=== PATIENT | male | born 1950 | race African-American/Black ===

== ENCOUNTER 2020-05-06 11:27 | Inpatient (IN) | payer OTHER ==
[2020-05-06 12:21] VITALS: BMI 18.8
[2020-05-06] MEDS ORDERED: ACETAMINOPHEN 325 MG TABLET (FP) PO PRN ×2 (13:14)
[2020-05-06] MEDS ORDERED: IBUPROFEN 400 MG TABLET (FP) PO PRN (13:14)
[2020-05-06] MEDS ORDERED: MAG HYDROX/AL HYDROX/SIMETH 30 ML UNIT-DOSE CUP PO PRN (13:14)
[2020-05-06] MEDS ORDERED: MENTHOL/PHENOL 1 EACH UD MM PRN (13:14)
[2020-05-06] MEDS ORDERED: MAGNESIUM CITRATE 300 ML BOTTLE PO PRN (13:14)
[2020-05-06] MEDS ORDERED: chlordiazePOXIDE HCL 25 MG CAPSULE PO PRN (13:14)
[2020-05-06] MEDS ORDERED: NICOTINE POLACRILEX 2 MG GUM BUC PRN (13:14)
[2020-05-06] MEDS ORDERED: ONDANSETRON *ODT* 4 MG TABLET SL PRN (13:14)
[2020-05-06] MEDS ORDERED: MAGNESIUM HYDROX 2400MG/30ML ORAL SUSPENSION 30 ML CUP PO PRN (13:14)
[2020-05-06] MEDS ORDERED: BISMUTH SUBSALICYLATE 524 MG/30 ML UD PO PRN (13:14)
[2020-05-06] MEDS ORDERED: TENOFOVIR DISOPROXIL FUMARATE 300 MG TABLET PO SCH (13:15)
[2020-05-06] MEDS: ASPIRIN 81 MG CHEWABLE TABLETS PO SCH (14:00)
[2020-05-06] MEDS ORDERED: hydrOXYzine PAMOATE 25 MG CAPSULE (FP) PO SCH (14:00)
[2020-05-06] MEDS: HYDROCHLOROTHIAZIDE 25 MG TABLET (FP) PO SCH (14:10)
[2020-05-06] MEDS: NICOTINE 14 MG/24 HOURS TOPICAL PATCH TD SCH (14:11)
[2020-05-06] MEDS: amLODIPine BESYLATE 5 MG TABLET (FP) PO SCH (14:12)
[2020-05-06] MEDS ORDERED: QUEtiapine FUMARATE 50 MG TABLET PO PRN (14:55)
[2020-05-06] MEDS: VALSARTAN 160 MG TABLET PO SCH (15:04)
[2020-05-06] MEDS: DARUNAVIR 800 MG/COBICISTAT 150MG TABLET PO SCH (15:05)
[2020-05-06] MEDS: DOLUTEGRAVIR SODIUM 50 MG TABLET (NON-FORMULARY) PO SCH (15:05)
[2020-05-06] MEDS ORDERED: hydrOXYzine PAMOATE 25 MG CAPSULE (FP) PO PRN (15:51)
[2020-05-06] MEDS ORDERED: chlordiazePOXIDE HCL 25 MG CAPSULE PO SCH (17:00)
[2020-05-06] MEDS: chlordiazePOXIDE HCL 25 MG CAPSULE PO SCH ×2 (17:44→22:13)
[2020-05-06 18:37] LABS: HEMATOCRIT 37.2 % (35.4-49); HEMOGLOBIN 12.3 GM/dL (11.7-16.9); MCH 28.8 pg (25.7-33.7); MEAN CELL VOLUME 87.5 fl (80-96); MEAN PLT VOLUME 9.9 fl (7.5-11.1); PLATELET COUNT 179 K/MM3 (134-434); RBC 4.25 M/mm3 (4.00-5.60); RDW 14.7 % (11.9-15.9); WHITE BLOOD COUNT 3.2 K/mm3 (4.0-10.0)
[2020-05-06 18:40] LABS: POTASSIUM 4.6 mmol/L (3.5-5.1)
[2020-05-06 18:41] LABS: CALCIUM 9.3 mg/dL (8.5-10.1)
[2020-05-06 18:42] LABS: ALBUMIN 3.9 g/dl (3.4-5.0); BLOOD UREA NITROGEN 37.2 mg/dL (7-18)
[2020-05-06 18:45] LABS: CREATININE 2.9 mg/dL (0.55-1.3)
[2020-05-06 18:47] LABS: BILIRUBIN,TOTAL 0.4 mg/dL (0.2-1); TOT PROT 8.5 g/dl (6.4-8.2)
[2020-05-06] MEDS ORDERED: SULFAMETHOXAZOLE/TRIMETHOPRIM 800MG/160MG D.S. TABLET PO SCH (22:00)
[2020-05-06] MEDS: THIAMINE HCL 100 MG TABLET (FP) PO SCH (22:13)
[2020-05-06] MEDS: MELATONIN 5 MG TABLETS PO SCH (22:13)
[2020-05-07] MEDS: chlordiazePOXIDE HCL 25 MG CAPSULE PO SCH ×4 (06:57→22:28)
[2020-05-07] MEDS: ASPIRIN 81 MG CHEWABLE TABLETS PO SCH (10:44)
[2020-05-07] MEDS: DOLUTEGRAVIR SODIUM 50 MG TABLET (NON-FORMULARY) PO SCH (10:44)
[2020-05-07] MEDS: PRENATAL VITAMINS W/ FOLIC ACID TABLET (FP) PO SCH (10:45)
[2020-05-07] MEDS: DARUNAVIR 800 MG/COBICISTAT 150MG TABLET PO SCH (10:45)
[2020-05-07] MEDS: NICOTINE 14 MG/24 HOURS TOPICAL PATCH TD SCH (10:46)
[2020-05-07] MEDS: VALSARTAN 160 MG TABLET PO SCH (13:03)
[2020-05-07] MEDS: amLODIPine BESYLATE 5 MG TABLET (FP) PO SCH (13:04)
[2020-05-07] MEDS: HYDROCHLOROTHIAZIDE 25 MG TABLET (FP) PO SCH (13:04)
[2020-05-07] MEDS: THIAMINE HCL 100 MG TABLET (FP) PO SCH (22:28)
[2020-05-07] MEDS: MELATONIN 5 MG TABLETS PO SCH (22:29)
[2020-05-08] MEDS: chlordiazePOXIDE HCL 25 MG CAPSULE PO SCH ×4 (05:40→22:50)
[2020-05-08] MEDS: amLODIPine BESYLATE 5 MG TABLET (FP) PO SCH (10:37)
[2020-05-08] MEDS: NICOTINE 14 MG/24 HOURS TOPICAL PATCH TD SCH (10:37)
[2020-05-08] MEDS: PRENATAL VITAMINS W/ FOLIC ACID TABLET (FP) PO SCH (10:37)
[2020-05-08] MEDS: ASPIRIN 81 MG CHEWABLE TABLETS PO SCH (10:37)
[2020-05-08] MEDS: DOLUTEGRAVIR SODIUM 50 MG TABLET (NON-FORMULARY) PO SCH (10:38)
[2020-05-08] MEDS: DARUNAVIR 800 MG/COBICISTAT 150MG TABLET PO SCH (10:38)
[2020-05-08] MEDS: METHOCARBAMOL 500 MG TABLET PO PRN (15:09)
[2020-05-08] MEDS: THIAMINE HCL 100 MG TABLET (FP) PO SCH (21:19)
[2020-05-08] MEDS: SULFAMETHOXAZOLE/TRIMETHOPRIM 400MG/80MG S.S. TABLET PO SCH (21:20)
[2020-05-08] MEDS: MELATONIN 5 MG TABLETS PO SCH (23:41)
[2020-05-09] MEDS ORDERED: chlordiazePOXIDE HCL 10 MG CAPSULE PO PRN
[2020-05-09] MEDS: chlordiazePOXIDE HCL 10 MG CAPSULE PO SCH ×4 (06:11→22:27)
[2020-05-09] MEDS: PRENATAL VITAMINS W/ FOLIC ACID TABLET (FP) PO SCH (10:36)
[2020-05-09] MEDS: NICOTINE 14 MG/24 HOURS TOPICAL PATCH TD SCH (10:37)
[2020-05-09] MEDS: HYDROCHLOROTHIAZIDE 25 MG TABLET (FP) PO SCH (10:37)
[2020-05-09] MEDS: ASPIRIN 81 MG CHEWABLE TABLETS PO SCH (10:37)
[2020-05-09] MEDS: amLODIPine BESYLATE 5 MG TABLET (FP) PO SCH (10:37)
[2020-05-09] MEDS: DARUNAVIR 800 MG/COBICISTAT 150MG TABLET PO SCH (10:38)
[2020-05-09] MEDS: DOLUTEGRAVIR SODIUM 50 MG TABLET (NON-FORMULARY) PO SCH (10:38)
[2020-05-09] MEDS: VALSARTAN 160 MG TABLET PO SCH (10:38)
[2020-05-09 11:11] LABS: BASO % 1.8 % (0-2.0); EOS % 7.8 % (0-4.5); HEMATOCRIT 32.2 % (35.4-49); HEMOGLOBIN 10.7 GM/dL (11.7-16.9); LYMPH % 33.4 % (8-40); MCH 29.1 pg (25.7-33.7); MCHC 33.2 g/dl (32.0-35.9); MEAN CELL VOLUME 87.7 fl (80-96); MEAN PLT VOLUME 9.2 fl (7.5-11.1); MONO % 15.1 % (3.8-10.2); NEUT % 41.9 % (42.8-82.8); PLATELET COUNT 146 K/MM3 (134-434); RBC 3.67 M/mm3 (4.00-5.60); RDW 14.5 % (11.9-15.9); WHITE BLOOD COUNT 2.4 K/mm3 (4.0-10.0)
[2020-05-09 11:19] LABS: POTASSIUM 4.7 mmol/L (3.5-5.1)
[2020-05-09 11:28] LABS: ALBUMIN 3.3 g/dl (3.4-5.0); CALCIUM 9.3 mg/dL (8.5-10.1)
[2020-05-09 11:29] LABS: BLOOD UREA NITROGEN 32.3 mg/dL (7-18)
[2020-05-09 11:32] LABS: CREATININE 2.5 mg/dL (0.55-1.3)
[2020-05-09 11:33] LABS: BILIRUBIN,TOTAL 0.8 mg/dL (0.2-1); TOT PROT 7.1 g/dl (6.4-8.2)
[2020-05-09] MEDS: MELATONIN 5 MG TABLETS PO SCH (22:24)
[2020-05-09] MEDS: THIAMINE HCL 100 MG TABLET (FP) PO SCH (22:24)
[2020-05-09] MEDS: SULFAMETHOXAZOLE/TRIMETHOPRIM 400MG/80MG S.S. TABLET PO SCH (22:25)
[2020-05-10] MEDS: chlordiazePOXIDE HCL 10 MG CAPSULE PO SCH ×2 (06:29→18:30)
[2020-05-10] MEDS: amLODIPine BESYLATE 5 MG TABLET (FP) PO SCH (10:19)
[2020-05-10] MEDS: ASPIRIN 81 MG CHEWABLE TABLETS PO SCH (10:19)
[2020-05-10] MEDS: NICOTINE 14 MG/24 HOURS TOPICAL PATCH TD SCH (10:19)
[2020-05-10] MEDS: PRENATAL VITAMINS W/ FOLIC ACID TABLET (FP) PO SCH (10:19)
[2020-05-10] MEDS: HYDROCHLOROTHIAZIDE 25 MG TABLET (FP) PO SCH (10:19)
[2020-05-10] MEDS: VALSARTAN 160 MG TABLET PO SCH (10:19)
[2020-05-10] MEDS: DOLUTEGRAVIR SODIUM 50 MG TABLET (NON-FORMULARY) PO SCH (10:20)
[2020-05-10] MEDS: DARUNAVIR 800 MG/COBICISTAT 150MG TABLET PO SCH (10:20)
[2020-05-10 14:53] LABS: BASO % 0.5 % (0-2.0); EOS % 5.3 % (0-4.5); HEMATOCRIT 36.2 % (35.4-49); HEMOGLOBIN 11.9 GM/dL (11.7-16.9); LYMPH % 25.8 % (8-40); MCH 29.1 pg (25.7-33.7); MCHC 32.7 g/dl (32.0-35.9); MEAN PLT VOLUME 10.1 fl (7.5-11.1); MONO % 13.5 % (3.8-10.2); NEUT % 54.9 % (42.8-82.8); PLATELET COUNT 182 K/MM3 (134-434); RBC 4.07 M/mm3 (4.00-5.60); RDW 14.9 % (11.9-15.9); WHITE BLOOD COUNT 3.5 K/mm3 (4.0-10.0)
[2020-05-10] MEDS: METHOCARBAMOL 500 MG TABLET PO PRN (20:47)
[2020-05-10 20:57] VITALS: BP 119/77; PULSE 84; TEMP 96.1
[2020-05-10] MEDS: SULFAMETHOXAZOLE/TRIMETHOPRIM 400MG/80MG S.S. TABLET PO SCH (23:15)
[2020-05-10] MEDS: MELATONIN 5 MG TABLETS PO SCH (23:15)
[2020-05-10] MEDS: THIAMINE HCL 100 MG TABLET (FP) PO SCH (23:18)
[2020-05-11] MEDS ORDERED: FOLIC ACID INJECTION - 1 MG, THIAMINE HCL 100 MG, MULTIVIT INJECTION ADULT 10 ML in SOD... IVPB ONE (01:09)
[2020-05-11] MEDS ORDERED: chlordiazePOXIDE HCL 10 MG CAPSULE PO ONE (05:00)
[2020-05-11] MEDS ORDERED: QUEtiapine FUMARATE 50 MG TABLET PO SCH (22:00)
== END 2020-05-10 21:39 | disposition short-term general hospital (02) | DRG 897 ==
LOC: YASAS 11:27 → Y6N 12:13
PROVIDERS: ADMIT Allergy & Immunology; ATTEND Allergy & Immunology
PROC: HZ2ZZZZ Detoxification Services for Substance Abuse Treatment (ICD-10-PCS; principal; 2020-05-06)
DX: F10.230 Alcohol dependence with withdrawal, uncomplicated (principal); F19.282 Other psychoactive substance dependence with psychoactive substance-induced sleep disorder; B20 Human immunodeficiency virus [HIV] disease; N17.9 Acute kidney failure, unspecified; F11.23 Opioid dependence with withdrawal; F12.20 Cannabis dependence, uncomplicated; F17.210 Nicotine dependence, cigarettes, uncomplicated; F19.24 Other psychoactive substance dependence with psychoactive substance-induced mood disorder; I10 Essential (primary) hypertension; D64.9 Anemia, unspecified; R79.89 Other specified abnormal findings of blood chemistry; D72.819 Decreased white blood cell count, unspecified; M25.552 Pain in left hip; R26.2 Difficulty in walking, not elsewhere classified; Z99.89 Dependence on other enabling machines and devices; Z86.79 Personal history of other diseases of the circulatory system; Z86.19 Personal history of other infectious and parasitic diseases; W01.0XXA Fall on same level from slipping, tripping and stumbling without subsequent striking against object, initial encounter; Y93.89 Activity, other specified; Y92.230 Patient room in hospital as the place of occurrence of the external cause
CPT/HCPCS: 36415; 80053; 85025; 85027; 86780; 93005; 93010; C9803; U0003

== ENCOUNTER 2020-05-10 21:52 | Inpatient (IN) | payer OTHER ==
[2020-05-10 23:41] LABS: HEMATOCRIT 33.3 % (35.4-49); HEMOGLOBIN 11.1 GM/dL (11.7-16.9); MCHC 33.3 g/dl (32.0-35.9); MEAN CELL VOLUME 87.2 fl (80-96); MEAN PLT VOLUME 9.3 fl (7.5-11.1); PLATELET COUNT 176 K/MM3 (134-434); RBC 3.82 M/mm3 (4.00-5.60); RDW 14.9 % (11.9-15.9); WHITE BLOOD COUNT 3.1 K/mm3 (4.0-10.0)
[2020-05-10 23:50] LABS: INR 0.89 (0.83-1.09)
[2020-05-10 23:59] LABS: CHLORIDE 105 mmol/L (98-107); POTASSIUM 5.3 mmol/L (3.5-5.1); SODIUM 139 mmol/L (136-145)
[2020-05-11] LABS: CALCIUM 9.1 mg/dL (8.5-10.1)
[2020-05-11 00:02] LABS: ALBUMIN 3.4 g/dl (3.4-5.0); ANION GAP 3 MMOL/L (8-16); CO2 31 mmol/L (21-32); GLUCOSE,RANDOM 92 mg/dL (74-106)
[2020-05-11 00:05] LABS: BLOOD UREA NITROGEN 41.5 mg/dL (7-18); CREATININE 2.7 mg/dL (0.55-1.3); SGOT/AST 23 U/L (15-37); SGPT/ALT 22 U/L (13-61)
[2020-05-11 00:06] LABS: BILIRUBIN,TOTAL 0.2 mg/dL (0.2-1); TOT PROT 7.6 g/dl (6.4-8.2)
[2020-05-11 00:07] LABS: ALK PHOS 91 U/L (45-117)
[2020-05-11 00:40] LABS: COCAINE, UR NEGATIVE ng/ml (CUTOFF=300); METHADONE, UR NEGATIVE ng/ml (CUTOFF=300); URINE BARBITURATES NEGATIVE ng/ml (CUTOFF=200)
[2020-05-11 00:41] LABS: OPIATES, URI NEGATIVE ng/ml (CUTOFF=300); PHENCYCLIDINE,URINE NEGATIVE ng/ml (CUTOFF=25)
[2020-05-11] MEDS ORDERED: LACTATED RINGERS SOLUTION 1000 ML INFUS.BAG IV ONE (01:04)
[2020-05-11 01:07] LABS: URINE AMPHETAMINES NEGATIVE ng/ml (CUTOFF=500)
[2020-05-11 01:50] LABS: URINE BENZODIAZEPINES POSITIVE ng/ml (CUTOFF=200)
[2020-05-11 03:01] LABS: PH,URINE 6.5 (5.0-8.0); URINE APPEARANCE CLEAR; URINE BILIRUBIN NEGATIVE (NEGATIVE); URINE COLOR YELLOW; URINE GLUCOSE (UA) TRACE (NEGATIVE); URINE KETONE NEGATIVE (NEGATIVE); URINE LEUK ESTERASE NEGATIVE (NEGATIVE); URINE NITRITE NEGATIVE (NEGATIVE); URINE PROTEIN NEGATIVE (NEGATIVE); URINE UROBILINOGEN 0.2 mg/dL (0.2-1.0)
[2020-05-11 03:02] LABS: EPI CELLS 3 /uL (0-25.1); HYALINE CASTS 0 /uL (0-3.1); URINE BACTERIA 5 /uL (0-1359); URINE RBC 1 /uL (0-23.9); URINE WBC 2 /uL (0-25.8)
[2020-05-11] MEDS: POLYETHYLENE GLYCOL 3350 119 GM BTL PO SCH ×3 (07:21→23:25)
[2020-05-11] MEDS ORDERED: MULTIVIT INJ. ADULT COMBO WITH VIT K 1 COMBO 10 ML VIAL IV SCH (10:00)
[2020-05-11] MEDS ORDERED: chlordiazePOXIDE HCL 10 MG CAPSULE PO ONE (10:00)
[2020-05-11] MEDS ORDERED: chlordiazePOXIDE 5 MG CAPSULE ONE (10:20)
[2020-05-11] MEDS ORDERED: MULTIVITAMINS (DAILY MVI) TABLET (FP) ONE (10:20)
[2020-05-11] MEDS ORDERED: THIAMINE HCL 100 MG TABLET (FP) ONE (10:20)
[2020-05-11] MEDS ORDERED: ENOXAPARIN NA (PORCINE) 30 MG/0.3 ML DISP.SYRIN SQ ONE (10:21)
[2020-05-11] MEDS: THIAMINE HCL 100 MG TABLET (FP) PO SCH ×2 (10:29→23:25)
[2020-05-11] MEDS: ENOXAPARIN NA (PORCINE) 30 MG/0.3 ML DISP.SYRIN SQ SCH (10:29)
[2020-05-11] MEDS: NICOTINE 21 MG/24 HOURS TOPICAL PATCH TD SCH (10:29)
[2020-05-11] MEDS: CYANOCOBALAMIN (VITAMIN B-12) 100 MCG TABLET PO SCH (10:29)
[2020-05-11] MEDS: FOLIC ACID 1 MG TABLET (FP) PO SCH (10:29)
[2020-05-11] MEDS: MULTIVITAMINS (DAILY MVI) TABLET (FP) PO SCH (10:29)
[2020-05-11 10:34] LABS: HEMOGLOBIN 11.5 GM/dL (11.7-16.9); MCH 29.1 pg (25.7-33.7); MCHC 32.9 g/dl (32.0-35.9); MEAN CELL VOLUME 88.4 fl (80-96); PLATELET COUNT 174 K/MM3 (134-434); RBC 3.96 M/mm3 (4.00-5.60); RDW 15.3 % (11.9-15.9)
[2020-05-11 10:50] LABS: CHLORIDE 106 mmol/L (98-107); POTASSIUM 4.3 mmol/L (3.5-5.1); SODIUM 141 mmol/L (136-145)
[2020-05-11 10:55] LABS: ANION GAP 5 MMOL/L (8-16); BLOOD UREA NITROGEN 36.8 mg/dL (7-18); CALCIUM 9.4 mg/dL (8.5-10.1); CO2 31 mmol/L (21-32)
[2020-05-11 10:56] LABS: ALBUMIN 3.6 g/dl (3.4-5.0); CHOLESTEROL 135 mg/dL (50-200); GLUCOSE,RANDOM 65 mg/dL (74-106); LDL CHOLESTEROL (ONLY SJRH) 55 mg/dL (5-100); MAGNESIUM 2.2 mg/dL (1.8-2.4); TRIGLYCERIDES 41 mg/dL (0-150)
[2020-05-11 10:59] LABS: CREATININE 2.3 mg/dL (0.55-1.3); HDL CHOLESTEROL 84 mg/dL (40-60); SGPT/ALT 20 U/L (13-61)
[2020-05-11 11:00] LABS: SGOT/AST 22 U/L (15-37)
[2020-05-11 11:01] LABS: BILIRUBIN,TOTAL 0.3 mg/dL (0.2-1); TOT PROT 7.7 g/dl (6.4-8.2)
[2020-05-11 11:02] LABS: ALK PHOS 71 U/L (45-117)
[2020-05-11 11:32] LABS: IRON SERUM 75 ug/dL (50-175); TOTAL IRON BINDING CAPACITY 364 ug/dL (250-450)
[2020-05-11] MEDS: amLODIPine BESYLATE 5 MG TABLET (FP) PO SCH (12:52)
[2020-05-11] MEDS ORDERED: QUEtiapine FUMARATE 50 MG TABLET PO SCH (22:00)
[2020-05-12 01:11] VITALS: BMI 22.4
[2020-05-12] MEDS: POLYETHYLENE GLYCOL 3350 119 GM BTL PO SCH ×2 (06:40→15:51)
[2020-05-12] MEDS ORDERED: LACTATED RINGERS SOLUTION 1,000 ML/1,000 ML INFUS.BAG IV SCH (07:30)
[2020-05-12] MEDS ORDERED: SULFAMETHOXAZOLE/TRIMETHOPRIM 400MG/80MG S.S. TABLET PO SCH (10:00)
[2020-05-12] MEDS ORDERED: DOLUTEGRAVIR SODIUM 50 MG TABLET (NON-FORMULARY) PO SCH (10:00)
[2020-05-12] MEDS ORDERED: DARUNAVIR 800 MG/COBICISTAT 150MG TABLET PO SCH (10:00)
[2020-05-12] MEDS ORDERED: SULFAMETHOXAZOLE/TRIMETHOPRIM 800MG/160MG D.S. TABLET PO SCH (10:00)
[2020-05-12] MEDS: FOLIC ACID 1 MG TABLET (FP) PO SCH (10:50)
[2020-05-12] MEDS: ENOXAPARIN NA (PORCINE) 30 MG/0.3 ML DISP.SYRIN SQ SCH (10:50)
[2020-05-12] MEDS: amLODIPine BESYLATE 5 MG TABLET (FP) PO SCH (10:51)
[2020-05-12] MEDS: NICOTINE 21 MG/24 HOURS TOPICAL PATCH TD SCH (10:51)
[2020-05-12] MEDS: MULTIVITAMINS (DAILY MVI) TABLET (FP) PO SCH (10:52)
[2020-05-12] MEDS: THIAMINE HCL 100 MG TABLET (FP) PO SCH (10:53)
[2020-05-12] MEDS: CYANOCOBALAMIN (VITAMIN B-12) 100 MCG TABLET PO SCH (10:53)
[2020-05-12 14:29] VITALS: BP 112/80; PULSE 85; TEMP 97.9
== END 2020-05-12 18:24 | DRG 897 ==
LOC: JER 21:52 → JERBED 05-11 01:06 → OBSVTOIN 05-11 02:20 → J4W 05-11 20:56
PROVIDERS: ADMIT Internal Medicine; ATTEND Student in an Organized Health Care Education/Training Program
DX: F10.96 Alcohol use, unspecified with alcohol-induced persisting amnestic disorder (principal); N17.9 Acute kidney failure, unspecified; Z21 Asymptomatic human immunodeficiency virus [HIV] infection status; R55 Syncope and collapse; D64.9 Anemia, unspecified; G47.00 Insomnia, unspecified; F17.210 Nicotine dependence, cigarettes, uncomplicated; F14.10 Cocaine abuse, uncomplicated; N18.9 Chronic kidney disease, unspecified; F04 Amnestic disorder due to known physiological condition; F10.10 Alcohol abuse, uncomplicated; M25.559 Pain in unspecified hip
CPT/HCPCS: 36415; 70450-TC; 71250-TC; 72125-TC; 74176-TC; 76775-TC; 80053; 80061; 80307; 81003; 82550; 83036; 83540; 83550; 83605; 83721; 83735; 84100; 84443; 84484; 85027; 85610; 85730; 86359; 86360; 87536; 93005; 93010; 93306-TC; 93880-TC; 97116-GP; 97161-GP; 99285-25; C9803; G0378; G0480; U0003

== ENCOUNTER 2020-05-19 16:16 | Observation (INO) | payer OTHER ==
[2020-05-19 17:23] LABS: URINE APPEARANCE CLEAR; URINE BILIRUBIN NEGATIVE (NEGATIVE); URINE COLOR YELLOW; URINE GLUCOSE (UA) NEGATIVE (NEGATIVE); URINE KETONE NEGATIVE (NEGATIVE); URINE LEUK ESTERASE NEGATIVE (NEGATIVE); URINE NITRITE NEGATIVE (NEGATIVE); URINE PROTEIN TRACE (NEGATIVE); URINE UROBILINOGEN 0.2 mg/dL (0.2-1.0)
[2020-05-19 17:40] LABS: METHADONE, UR NEGATIVE ng/ml (CUTOFF=300); OPIATES, URI NEGATIVE ng/ml (CUTOFF=300); URINE AMPHETAMINES NEGATIVE ng/ml (CUTOFF=500); URINE BARBITURATES NEGATIVE ng/ml (CUTOFF=200)
[2020-05-19 17:41] LABS: PHENCYCLIDINE,URINE NEGATIVE ng/ml (CUTOFF=25)
[2020-05-19 17:44] LABS: COCAINE, UR NEGATIVE ng/ml (CUTOFF=300)
[2020-05-19 17:47] LABS: URINE BENZODIAZEPINES POSITIVE ng/ml (CUTOFF=200)
[2020-05-19 18:07] LABS: BASO % 0.7 % (0-2.0); EOS % 2.9 % (0-4.5); HEMATOCRIT 28.8 % (35.4-49); HEMOGLOBIN 9.6 GM/dL (11.7-16.9); LYMPH % 18.3 % (8-40); MCH 28.5 pg (25.7-33.7); MCHC 33.3 g/dl (32.0-35.9); MEAN CELL VOLUME 85.5 fl (80-96); MEAN PLT VOLUME 8.5 fl (7.5-11.1); MONO % 11.4 % (3.8-10.2); NEUT % 66.7 % (42.8-82.8); PLATELET COUNT 192 K/MM3 (134-434); RBC 3.37 M/mm3 (4.00-5.60); RDW 14.6 % (11.9-15.9); WHITE BLOOD COUNT 4.6 K/mm3 (4.0-10.0)
[2020-05-19 18:28] LABS: POTASSIUM 5.2 mmol/L (3.5-5.1)
[2020-05-19 18:30] LABS: BLOOD UREA NITROGEN 49.6 mg/dL (7-18); CALCIUM 9.3 mg/dL (8.5-10.1)
[2020-05-19 18:31] LABS: ALBUMIN 3.7 g/dl (3.4-5.0)
[2020-05-19 18:33] LABS: CREATININE 3.1 mg/dL (0.55-1.3)
[2020-05-19 18:35] LABS: BILIRUBIN,TOTAL 0.2 mg/dL (0.2-1); TOT PROT 7.9 g/dl (6.4-8.2)
[2020-05-19] MEDS ORDERED: LACTATED RINGERS SOLUTION 1000 ML INFUS.BAG IV ONE (19:00)
[2020-05-20] MEDS ORDERED: SODIUM CHLORIDE 1,000 ML IV SCH (01:00)
[2020-05-20 03:54] VITALS: BMI 19.1
[2020-05-20] MEDS: HEPARIN NA (PORCINE) 5,000 UNITS/ML 1ML VIAL SQ SCH ×3 (06:35→21:09)
[2020-05-20] MEDS ORDERED: TENOFOVIR ALAFENAMIDE FUMARATE 25 MG PO SCH (10:00)
[2020-05-20] MEDS ORDERED: DOLUTEGRAVIR SODIUM 50 MG TABLET (NON-FORMULARY) PO SCH (10:00)
[2020-05-20] MEDS ORDERED: DARUNAVIR 800 MG/COBICISTAT 150MG TABLET PO SCH (10:00)
[2020-05-20] MEDS ORDERED: THIAMINE HCL 100 MG TABLET (FP) PO SCH (10:00)
[2020-05-20] MEDS ORDERED: FOLIC ACID 1 MG TABLET (FP) PO SCH (10:00)
[2020-05-20] MEDS: FOLIC ACID 1 MG TABLET (FP) PO SCH (10:33)
[2020-05-20] MEDS: amLODIPine BESYLATE 5 MG TABLET (FP) PO SCH (10:33)
[2020-05-20] MEDS: THIAMINE HCL 100 MG TABLET (FP) PO SCH ×2 (10:34→21:10)
[2020-05-20 10:53] LABS: BASO % 1.1 % (0-2.0); EOS % 5.3 % (0-4.5); HEMATOCRIT 26.7 % (35.4-49); HEMOGLOBIN 8.9 GM/dL (11.7-16.9); MCH 28.6 pg (25.7-33.7); MCHC 33.4 g/dl (32.0-35.9); MEAN CELL VOLUME 85.7 fl (80-96); NEUT % 63.6 % (42.8-82.8); PLATELET COUNT 172 K/MM3 (134-434); RBC 3.12 M/mm3 (4.00-5.60); RDW 14.5 % (11.9-15.9); WHITE BLOOD COUNT 4.3 K/mm3 (4.0-10.0)
[2020-05-20 11:10] LABS: POTASSIUM 4.6 mmol/L (3.5-5.1)
[2020-05-20 11:14] LABS: ALBUMIN 3.2 g/dl (3.4-5.0); BLOOD UREA NITROGEN 38.9 mg/dL (7-18)
[2020-05-20 11:15] LABS: CALCIUM 8.8 mg/dL (8.5-10.1)
[2020-05-20 11:17] LABS: PHOSPHOROUS 3.5 mg/dL (2.5-4.9)
[2020-05-20 11:18] LABS: CREATININE 2.3 mg/dL (0.55-1.3)
[2020-05-20 11:19] LABS: BILIRUBIN,TOTAL 0.3 mg/dL (0.2-1); TOT PROT 7.1 g/dl (6.4-8.2)
[2020-05-20 17:39] LABS: CALCIUM 9.3 mg/dL (8.5-10.1)
[2020-05-20 17:40] LABS: BLOOD UREA NITROGEN 44.6 mg/dL (7-18)
[2020-05-20 17:43] LABS: CREATININE 2.7 mg/dL (0.55-1.3)
[2020-05-20] MEDS ORDERED: QUEtiapine FUMARATE 25 MG TABLET ONE (21:06)
[2020-05-20] MEDS ORDERED: QUEtiapine FUMARATE 50 MG TABLET PO SCH (22:00)
[2020-05-21] MEDS: HEPARIN NA (PORCINE) 5,000 UNITS/ML 1ML VIAL SQ SCH (06:03)
[2020-05-21 09:04] LABS: BASO % 1.1 % (0-2.0); EOS % 5.1 % (0-4.5); HEMATOCRIT 28.6 % (35.4-49); HEMOGLOBIN 9.7 GM/dL (11.7-16.9); LYMPH % 19.9 % (8-40); MCH 28.8 pg (25.7-33.7); MCHC 33.9 g/dl (32.0-35.9); MEAN PLT VOLUME 8.5 fl (7.5-11.1); MONO % 11.1 % (3.8-10.2); NEUT % 62.8 % (42.8-82.8); PLATELET COUNT 188 K/MM3 (134-434); RBC 3.36 M/mm3 (4.00-5.60); RDW 14.9 % (11.9-15.9); WHITE BLOOD COUNT 4.6 K/mm3 (4.0-10.0)
[2020-05-21 09:20] LABS: POTASSIUM 4.3 mmol/L (3.5-5.1)
[2020-05-21 09:26] LABS: ALBUMIN 3.4 g/dl (3.4-5.0); BLOOD UREA NITROGEN 36.2 mg/dL (7-18); CALCIUM 9.4 mg/dL (8.5-10.1)
[2020-05-21 09:29] LABS: CREATININE 2.2 mg/dL (0.55-1.3); PHOSPHOROUS 4.2 mg/dL (2.5-4.9)
[2020-05-21 09:30] LABS: BILIRUBIN,TOTAL 0.4 mg/dL (0.2-1); TOT PROT 7.6 g/dl (6.4-8.2)
[2020-05-21] MEDS: FOLIC ACID 1 MG TABLET (FP) PO SCH (10:08)
[2020-05-21] MEDS: amLODIPine BESYLATE 5 MG TABLET (FP) PO SCH (10:08)
[2020-05-21] MEDS: THIAMINE HCL 100 MG TABLET (FP) PO SCH (10:08)
[2020-05-21 10:27] VITALS: BP 142/81; PULSE 90; TEMP 97.9
== END 2020-05-21 15:11 | disposition home or self-care (01) ==
LOC: JER 16:16 → INTOOBSV 18:58 → JERBED 18:58 → J5S 05-20 02:07
PROVIDERS: ADMIT Hospitalist; ATTEND Student in an Organized Health Care Education/Training Program
PROC: 3E023GC Introduction of Other Therapeutic Substance into Muscle, Percutaneous Approach (ICD-10-PCS; principal; 2020-05-19)
PROC: 3E0337Z Introduction of Electrolytic and Water Balance Substance into Peripheral Vein, Percutaneous Approach (ICD-10-PCS; 2020-05-19)
DX: N17.9 Acute kidney failure, unspecified (principal); R26.81 Unsteadiness on feet; F10.10 Alcohol abuse, uncomplicated; F17.210 Nicotine dependence, cigarettes, uncomplicated; F14.90 Cocaine use, unspecified, uncomplicated; Z21 Asymptomatic human immunodeficiency virus [HIV] infection status; B19.20 Unspecified viral hepatitis C without hepatic coma; I38 Endocarditis, valve unspecified; A15.9 Respiratory tuberculosis unspecified; R55 Syncope and collapse; E86.0 Dehydration
CPT/HCPCS: 36415; 73523-TC-FY; 80048; 80053; 80307; 81003; 82272; 82565; 82607; 82728; 82746; 83010; 83540; 83550; 83615; 83735; 84100; 84300; 84540; 85025; 85045; 87086; 93005; 93010; 96360; 96361; 96372; 97116-GP; 97161-GP; 99285-25; C9803; G0378; J1644; U0003